=== PATIENT | male | born 1990 | race Caucasian/White ===

== ENCOUNTER 2021-05-29 17:01 | Emergency (ER) | payer OTHER, SELFPAY ==
[2021-05-29 17:26] VITALS: BP 114/70; PULSE 95; TEMP 97.9; BMI 26.9
[2021-05-29] MEDS ORDERED: SODIUM CHLORIDE 1,000 ML IV STA (17:41)
[2021-05-29] MEDS ORDERED: KETOROLAC TROMETHAMINE 30 MG/1 ML VIAL IVPUSH ONE (17:41)
[2021-05-29 18:34] LABS: ALBUMIN 4.2 g/dl (3.4-5.0)
[2021-05-29 18:35] LABS: BLOOD UREA NITROGEN 16.8 mg/dL (7-18)
[2021-05-29 18:37] LABS: BASO % 0.8 % (0-2.0); EOS % 1.6 % (0-4.5); HEMATOCRIT 43.2 % (35.4-49); HEMOGLOBIN 15.1 GM/dL (11.7-16.9); LYMPH % 29.3 % (8-40); MCH 30.7 pg (25.7-33.7); MCHC 34.9 g/dl (32.0-35.9); MEAN PLT VOLUME 9.5 fl (7.5-11.1); MONO % 8.4 % (3.8-10.2); NEUT % 59.9 % (42.8-82.8); PLATELET COUNT 188 10^3/uL (134-434); RBC 4.91 M/mm3 (4.00-5.60); WHITE BLOOD COUNT 4.9 K/mm3 (4.0-10.0)
[2021-05-29 18:38] LABS: CREATININE 1.3 mg/dL (0.55-1.3); INR 1.23 (0.83-1.09); PROTHROMBIN TIME (PATIENT) 14.2 SEC (9.7-13.0)
[2021-05-29 18:39] LABS: BILIRUBIN,TOTAL 0.4 mg/dL (0.2-1); TOT PROT 6.9 g/dl (6.4-8.2)
== END 2021-05-29 20:12 | disposition home or self-care (01) ==
LOC: JER 17:01
PROC: 3E0337Z Introduction of Electrolytic and Water Balance Substance into Peripheral Vein, Percutaneous Approach (ICD-10-PCS; principal; 2021-05-29)
DX: R10.31 Right lower quadrant pain (principal)
CPT/HCPCS: 36415; 74177-TC; 80053; 83690; 85025; 85610; 86850; 86900; 86901; 96360; 99285-25; Q9967